=== PATIENT | female | born 1950 ===

== ENCOUNTER 2017-05-29 12:46 | Day surgery (SDC) | payer MEDICARE, OTHER ==
[~2017-05-29] VITALS: Ht 165.1 cm; Wt 70.7 kg
[2017-05-29 13:19] VITALS: BP 125/74; PULSE 105; TEMP 98.8
[2017-05-29] MEDS ORDERED: PRINZIDE 12.5 M1 TAB PO (13:26)
[2017-05-29] MEDS ORDERED: MOBIC15 MG PO (13:26)
[2017-05-29] MEDS ORDERED: ZYRTEC 10MG10 MG PO (13:27)
[2017-05-29] MEDS ORDERED: NORCO 325 MG-7.1 TAB PO ×2 (13:27→13:28)
[2017-05-29] MEDS ORDERED: AMBIEN 10MG10 MG PO (13:30)
[2017-05-29] MEDS ORDERED: MELAT3MGTAB PO (13:30)
[2017-05-29] MEDS ORDERED: ROBAXIN 75750 MG/TAB PO (13:31)
[2017-05-29 15:05] VITALS: BP 111/59; PULSE 94; TEMP 97.4
[2017-05-29 15:15] VITALS: BP 123/64; PULSE 96
[2017-05-29 15:30] VITALS: BP 116/85; PULSE 97
[2017-05-29 15:45] VITALS: BP 137/90; PULSE 95
== END 2017-05-29 16:30 | disposition home or self-care (01) ==
LOC: SDCO 12:46
DX: Z12.11 Encounter for screening for malignant neoplasm of colon (principal); K62.1 Rectal polyp; D13.0 Benign neoplasm of esophagus; K22.2 Esophageal obstruction; K21.0 Gastro-esophageal reflux disease with esophagitis; K59.00 Constipation, unspecified; I10 Essential (primary) hypertension; M19.90 Unspecified osteoarthritis, unspecified site; G43.909 Migraine, unspecified, not intractable, without status migrainosus; F17.200 Nicotine dependence, unspecified, uncomplicated; Z90.710 Acquired absence of both cervix and uterus; Z86.010 Personal history of colon polyps
CPT/HCPCS: OP; C1726; J2405; J2550; J2704; J7030